=== PATIENT | male | born 1965 | race Hispanic/Latino ===

== ENCOUNTER 2019-05-25 19:26 | Emergency (ER) | payer SELFPAY ==
[~2019-05-25] VITALS: Ht 162.6 cm; Wt 99.8 kg
--- NOTE | 2019-05-25 20:40 | NUR ---
DIAMOND APPLIED, PT TOLERATING WELL, STATES "THIS FEELS GREAT".
--- NOTE | 2019-05-25 20:42 | Diagnostic Imaging Report ---
SHOULDER RIGHT COMPLETE - Multiple views HISTORY: ^eval for dislocation ^Y COMPARISON: None available. FINDINGS: Bones: No acute displaced fracture. Osseous alignment is within normal limits. Joints: There is mild joint space narrowing and bone production compatible with osteoarthritis. Soft tissues: The soft tissues appear unremarkable. IMPRESSION: No evidence of dislocation. Signed by: Jeremi Salas MD on 05/25/2019 8:39 PM
--- OUTSIDE RECORDS SUMMARY | 2019-05-25 21:17 | XMS REPORT ---
Author Author [facility] Address Unknown Phone Unavailable Care Team Providers Care Staff Interpreter Name Role Phone Ilene MARRERO Unavailable Unavailable Enrique Sterling Unavailable Unavailable Problems This patient has no known problems. Allergies, Adverse Reactions, Alerts This patient has no known allergies or adverse reactions. Medications This patient has no known medications. Results Test Description Test Time Test Comments Text Results Atomic Results Result Comments SHOULDER RIGHT COMPLETE 2019-05-25 20:38:00 [place] [address] Patient Name: ZAHRAA LEJIA MR #: [id number] : 1965 Age/Sex: 54/M Req #: [id number] Adm Physician: Ordered by: ELVIA MARRERO MD Report #: [id number] Location: ER Room/Bed: Procedure: [id number] DX/SHOULDER RIGHT COMPLETE Exam Date: Exam Time: REPORT STATUS: Signed SHOULDER RIGHT COMPLETE - Multiple views HISTORY: eval for dislocation Y COMPARISON: None available. FINDINGS: Bones: No acute displaced fracture. Osseous alignment is within normal limits. Joints: There is mild joint space narrowing and bone production compatible with osteoarthritis. Soft tissues: The soft tissues appear unremarkable. IMPRESSION: No evidence of dislocation. Signed by: Ricci Rice MD on 05/25/2019 8:39 PM Dictated By: ELO RICE MD 38 Transcribed By: ROXANNE on 05/25/192038 COPY TO: ELVIA MARRERO MD Wrist Left Wo Cont1 [place] [address] Name: ZAHRAA LEIJA Phys: Enrique Sterling MD ZZ.WANCL : 1965 Age: 51 Sex:M Acct: [id number] Loc: RAD Exam Date: 12/16/16 Status: REG REF Radiology Number: Unit Number: [id number] EXAM DESCRIPTION: MRI - Wrist Left Wo Cont1 - 12/16/2016 10:30 am CLINICAL HISTORY: M25.532 COMPARISON: Left hand and wrist imaging December 14 TECHNIQUE: Multiplanar imaging of the wrist performed using T1 weighted, T2 medic and T2 fat saturation sequencing. T2 STIR sequencing also performed. FINDINGS: There is a fracture line present traversing the midportion of the scaphoid bone. There is hypointense T1 and hyperintense T2 signal pattern. Signal pattern is much less intense on the T2 medic sequence. Likewise, the signal pattern is less prominent on the sagittal T2 STIR sequencing. On T1 imaging there is evidence for cortical bone along the fracture line. Elsewhere the carpal bones show scattered areas of degenerative cystic change. No fracture or signal abnormality distal radius and ulna. Metacarpals as imaged show no suspicious findings. On the transverse imaging there is contusion or edema signal in the subcutaneous fatty tissues over the dorsum of the institutional cook in proximity to the fourth and fifth metacarpal bases and the hamate bone. This is likely the area of greatest blunt force trauma which would be relatively distant from the scaphoid bone. Tendons show no normal hypointense signal intensity. No tendon thickening or tear. No large mass or hematoma. No significant skeletal muscle abnormality. IMPRESSION: Contusion and edema changes are seen in the soft tissues of the dorsum of the wrist close is in proximity to the hamate bone and base of the fourth and fifth metacarpal bones. Scaphoid fracture is present. 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 Correlation can be made with any point tenderness over the scaphoid bone as well as correlation with any history of a prior wrist injury. Acute scaphoid injury is unlikely. Signed By: Kirk Villalobos MD Signed AT: 12/16/16 1129 Hand Right 3 View [place] [address] Name: ZAHRAA LEIJA Phys: Enrique Sterling MD ZZ.WANCL : 1965 Age: 51 Sex:M Acct: [id number] Loc: RAD Exam Date: 12/14/16 Status: REG REF Radiology Number: Unit Number: [id number] EXAM DESCRIPTION: RAD - Hand Right 3 View - 12/14/2016 6:39 pm CLINICAL HISTORY: Right hand pain status post injury FINDINGS: A lucency is present within the midpole of the scaphoid likely representing a fracture. The age is indeterminate. If it is old it appears ununited. Clinical correlation is needed see if this is the site of injury and the patient has point tenderness to suggest an acute fracture. If the diagnosis remains uncertain MRI could be obtained The remainder of the exam is unremarkable Signed By: Jaime Parry MD Signed AT: 12/14/16 1916
== END 2019-05-25 20:45 | disposition home or self-care (01) ==
LOC: EDBD 19:26 → ER 19:26
DX: M25.511 Pain in right shoulder (principal); S43.014A Anterior dislocation of right humerus, initial encounter; X50.1XXA Overexertion from prolonged static or awkward postures, initial encounter; Y99.0 Civilian activity done for income or pay
CPT/HCPCS: 99283